=== PATIENT | female | born 1975 | race Caucasian/White ===

== ENCOUNTER 2023-01-16 06:41 | Emergency (ER) | payer BC, SELFPAY ==
[2023-01-16 06:54] VITALS: BP 175/84; PULSE 73; RESP 18; O2SAT 96
[2023-01-16 07:05] VITALS: BMI 37.8
[2023-01-16 07:08] VITALS: BP 154/89; PULSE 78; RESP 20; TEMP 36.8; O2SAT 98; BMI 37.8
--- NOTE | 2023-01-16 07:10 | CT_ITS ---
FINAL REPORT TECHNIQUE: Thin section axial images were obtained from the lung bases to the pubic symphysis without IV contrast. Coronal reconstruction images were obtained from the axial data. Exam was performed using dose reduction technique. CLINICAL HISTORY: abd pain, right flank pain, hx stones FINDINGS: There is moderate right hydronephrosis and hydroureter to the level of an obstructing 4 mm distal ureteral stone. There is also a nonobstructing right renal stone. The gallbladder is absent. There is fatty infiltration of the liver. There is a hypodense lesion in the upper pole of the spleen measuring 4 cm, may be a splenic cyst. The remaining unenhanced solid abdominal organs are unremarkable. There is no evidence of small bowel obstruction. The appendix is normal. The uterus is lobular. There may be fibroids. The cervix is prominent for age. There is no lymphadenopathy or ascites. No acute osseous abnormality is identified. IMPRESSION: Moderate right hydronephrosis and hydroureter secondary to an obstructing distal ureteral stone. Nonobstructing right renal stone. Fatty liver. Prominent cervix for age. Consider direct visualization. Reviewed, Interpreted and Dictated by Sarahi Reed MD Transcribed by Fanny Gutierrez Authenticated and [facility]
[2023-01-16 07:13] VITALS: BP 154/89; PULSE 78; RESP 18; O2SAT 96
[2023-01-16 07:16] LABS: Basophils # 0.1 K/mm3 (0-0.2); Basophils % 1.1 % (0.1-2.0); Eosinophils # 0.2 K/mm3 (0.0-0.4); Eosinophils % 2.2 % (0.1-12.0); Hematocrit 43.5 % (37.0-47.0); Hemoglobin 13.8 g/dL (12.2-16.2); Lymphocytes # 3.1 K/mm3 (0.7-4.5); Lymphocytes % 34.9 % (10-50); Mean Corpuscular HGB Conc 31.6 g/dL (31.8-35.4); Mean Corpuscular Hemoglobin 29.6 pg (27.0-31.2); Mean Corpuscular Volume 93.7 fl (81-99); Mean Platelet Volume 8.9 fl (7.4-10.4); Monocytes # 0.5 K/mm3 (0.1-1.0); Monocytes % 5.7 % (1.7-9.3); Platelet Count 288 K/mm3 (142-424); Red Blood Count 4.65 M/mm3 (4.20-5.40); Red Cell Distribution Width 13.5 % (11.5-17.5)
[2023-01-16 07:17] LABS: Chloride 105 mmol/L (98-107); Potassium 3.9 mmoL/L (3.5-5.1); Sodium 139 mmol/L (136-145)
--- NOTE | 2023-01-16 07:17 | [facility].EDABDPAI ---
Discharge Plan Disposition Patient Disposition: Still a Patient Prescriptions Prescriptions: New tamsulosin [Flomax] 0.4 mg capsule 0.4 mg PO DAILY Qty: 14 0RF Referrals Follow up/Referrals: Meryl Mayer [Primary Care Provider] - See instructions Zafar Dowling MD [Referring] - See instructions Clinical Impressions Clinical Impression: Renal colic on right side Instructions Patient Instructions: DI for Kidney Stones Discharge ED Provider: Donavon (ED),Richard Devi Abdominal Pain HPI General Chief Complaint: Abdominal Pain Stated Complaint: lower abdominal pain radiating to back right side Time Seen by Provider: 01/16/23 07:17 Mode of Arrival: Ambulatory Source of Information: Patient Limitations: No Limitations Description of Symptoms (Recalled from ER Triage Doc. by RN): Pt woke up this morning with right side abdominal and flank pain. Pt presents with nausea and vomiting at this time. Hx of kidney stones in the past. History of Present Illness HPI narrative: acute onset of rt flank pain this am with hx of kidney stones with nausea and vomiting complaint: flank pain Onset (ago): hour(s) Consistency: colicky Location: R flank Severity: moderate Associated symptoms: nausea and vomiting Related Data Previous Rx's Medication Instructions Recorded tamsulosin 0.4 mg capsule (Flomax) 0.4 mg PO DAILY #14 caps 01/16/23 Allergies Allergy/AdvReac Type Severity Reaction Status Date / Time No Known Allergies Allergy Verified 01/16/23 07:06 [facility] Disclaimer: The information contained in this section may have been updated after the patient was seen, as this information can be updated by other users. Social History Smoking Status: Never smoker alcohol intake: never current occupational status: employed Travel in the last 8 weeks: None ROS Obtained: Yes All systems reviewed & no additional complaints except as documented Physical Exam General General appearance: alert Head Head exam: normocephalic Eye Eye exam: Present PERRL and EOMI ENT ENT exam: Present mucous membranes moist Neck Neck exam: Present trachea midline Respiratory Respiratory exam: Present normal lung sounds bilaterally; Absent respiratory distress Cardiovascular Cardiovascular exam: Present regular rate Abdominal Exam Abdominal exam: Present soft Extremities Exam Extremities exam: Absent joint swelling Neurological Exam Neurological exam: Present alert, oriented X3 and CN II-XII intact; Absent motor sensory deficit Psychiatric Psychiatric exam: Present normal affect Skin Skin exam: Absent rash Medical Decision Making Medical Records Medical records reviewed: Yes I reviewed the patient's medical records. Chirag Inquiry Pt receiving controlled substance: No Vital Signs: 01/16/23 07:08 01/16/23 06:54 01/16/23 07:13 Temperature 98.2 F Temperature Source Oral Pulse Rate 73 78 Pulse Rate [Right] 78 Respiratory Rate 20 18 18 Blood Pressure 175/84 H 154/89 H Blood Pressure [Right Arm] 154/89 H Blood Pressure Mean 114 133 Blood Pressure Mean [Right Arm] 110 Blood Pressure Source [Right Arm] Automatic Cuff Blood Pressure Position [Right Arm] Sitting 02 Sat by Pulse Oximetry 98 96 96 Oxygen Delivery Method Room Air Lab Data Lab results reviewed: Yes I reviewed the patient's lab results. Lab Results 01/16/23 06:55: WBC 9.0, RBC 4.65, Hgb 13.8, Hct 43.5, MCV 93.7, MCH 29.6, MCHC 31.6 L, RDW 13.5, Plt Count 288, MPV 8.9, Neut % (Auto) 56.0, Lymph % (Auto) 34.9, Roosevelt % (Auto) 5.7, Eos % (Auto) 2.2, Baso % (Auto) 1.1, Neut # (Auto) 5.0, Lymph # (Auto) 3.1, Roosevelt # (Auto) 0.5, Eos # (Auto) 0.2, Baso # (Auto) 0.1 01/16/23 06:55: Sodium 139, Potassium 3.9, Chloride 105, Carbon Dioxide 27, Anion Gap 10.9, BUN 10, Creatinine 0.80, Estimated Creat Clear 122, Estimated GFR 76, Est GFR ( Amer) 92, Glucose 121 H, Calcium 8.9, Total Bilirubin 0.7, AST 41 H, ALT 35, Alkaline Phosphatase
[2023-01-16 07:19] LABS: Amylase 78 U/L (30-110)
[2023-01-16 07:20] LABS: Alanine Aminotransferase 35 U/L (12-78); Albumin Level 4.7 g/dl (3.5-5.0); Albumin/Globulin Ratio 1.5 (1.1-1.8); Alkaline Phosphatase 67 U/L (38-126); Anion Gap 10.9 mEq/L (5-15); Aspartate Amino Transferase 41 U/L (14-36); Bilirubin,Total 0.7 mg/dl (0.2-1.3); Blood Urea Nitrogen 10 mg/dl (7-17); Calcium 8.9 mg/dl (8.4-10.2); Carbon Dioxide 27 mmol/L (22.0-30.0); Creatinine Clearance Estimated 122 mL/min (50-200); Estimated Glomerular Filt Rate 76 ml/min (>60); GFR (African American) 92 ML/MIN (>60); Globulin 3.2 g/dL (1.3-3.2); Glucose 121 mg/dl (74-100); Lipase 174 U/L (23-300); Total Protein,Serum 7.9 g/dl (6.3-8.2)
--- NOTE | 2023-01-16 07:24 | PC.NURSE ---
Assumed pt care. Pt continued with pain and nausea despite meds given. MD notified.
--- NOTE | 2023-01-16 07:30 | PC.NURSE ---
Sister at bedside. Pt to CT.
--- NOTE | 2023-01-16 08:16 | PC.NURSE ---
MD at bedside discussing plan of care.
--- NOTE | 2023-01-16 08:16 | PC.NURSE ---
contacted rad to check on status of ct results, anya ward states she will check and send them down if they are available
--- NOTE | 2023-01-16 08:42 | PC.NURSE ---
MD at bedside discussing CT results.
--- NOTE | 2023-01-16 09:05 | PC.NURSE ---
contacted rad to check on status of ct reports- tasia states study is in locked status
--- NOTE | 2023-01-16 09:29 | PC.NURSE ---
MD at bedside re-evaluating.
--- NOTE | 2023-01-16 09:43 | PC.NURSE ---
Pt attempted to urinate, unsuccessful.
--- NOTE | 2023-01-16 09:56 | PC.NURSE ---
contacted rad to check on status of CT result, states they are sending down preliminary report now.
--- NOTE | 2023-01-16 09:58 | PC.NURSE ---
DUKE GAGNON at
--- NOTE | 2023-01-16 10:00 | PC.NURSE ---
contacted [facility] urology
--- NOTE | 2023-01-16 10:00 | PC.NURSE ---
request disc from radiology for pt.
--- NOTE | 2023-01-16 10:21 | PC.NURSE ---
waiting network liaison back from dr. gaspar (urology)
--- NOTE | 2023-01-16 10:21 | PC.NURSE ---
placed call to [facility] for urology, they are to call back when dr gaspar is available.
[2023-01-16 10:56] VITALS: BP 154/89; PULSE 78; RESP 18; TEMP 36.8; O2SAT 96
== END 2023-01-16 10:59 | disposition home or self-care (01) ==
PROVIDERS: Emergency Provider Emergency Medicine; PCP Nurse Practitioner Family
DX: N13.2 Hydronephrosis with renal and ureteral calculous obstruction (principal)
CPT/HCPCS: 74176; 80053; 82150; 83690; 85025; 96374; 96375; 99285; J2405